=== PATIENT | male | born 1965 | race Caucasian/White ===

== ENCOUNTER → 2021-12-30 | Outpatient (CLI) | payer BC | END | disposition home or self-care (01) | LOC: LAB 08:49 → LAB SHORT 08:49 | DX: L08.9 Local infection of the skin and subcutaneous tissue, unspecified (principal) | CPT/HCPCS: 87070; 87075; 87077; 87147; 87186; 87205 ==

== ENCOUNTER 2023-09-19 01:56 | Day surgery (SDC) | payer BC ==
[~2023-09-19 01:56] MED LIST: Acetaminophen650 M1 PO; CUBICIN RF500 M1 IV; HIGH POTENCY P1 EAC2 PO; VANCOMYCIN IV
[2023-09-19] MEDS ORDERED: DAPTOMYCIN IV SCH (07:15)
[2023-09-19] MEDS ORDERED: NS IV SCH (07:15)
[2023-09-19 07:39] VITALS: BP 147/99
== END 2023-09-19 08:44 | disposition home or self-care (01) ==
LOC: ATC 01:56
DX: M70.41 Prepatellar bursitis, right knee (principal)
CPT/HCPCS: 96365; J0878

== ENCOUNTER 2023-09-20 00:01 | Day surgery (SDC) | payer BC ==
[2023-09-20] MEDS ORDERED: NS IV SCH (06:00)
[2023-09-20] MEDS ORDERED: DAPTOMYCIN IV SCH (06:00)
[2023-09-20 08:40] VITALS: BP 148/104
== END 2023-09-20 09:07 | disposition home or self-care (01) ==
LOC: ATC 00:01
DX: M70.41 Prepatellar bursitis, right knee (principal)
CPT/HCPCS: 96365; J0878

== ENCOUNTER 2023-09-21 00:51 | Day surgery (SDC) | payer BC ==
[2023-09-21] MEDS ORDERED: NS IV SCH (06:00)
[2023-09-21] MEDS ORDERED: DAPTOMYCIN IV SCH (06:00)
[2023-09-21 08:45] VITALS: BP 149/93
[2023-09-21 08:51] LABS: BASOPHILS ABSOLUTE AUTO 0.03 K/mm3 (0.00-0.23); BASOPHILS PERCENT AUTO 0 % (0-2); EOSINOPHILS ABSOLUTE AUTO 0.08 K/mm3 (0.00-0.68); EOSINOPHILS PERCENT AUTO 1 % (0-6); Hematocrit 42.6 % (37.0-53.0); Hemoglobin 14.5 g/dL (13.5-17.5); IMMATURE GRAN ABSOLUTE AUTO 0.07 K/mm3 (0.00-0.10); IMMATURE GRAN PERCENT AUTO 1 % (0-1); LYMPHOCYTES ABSOLUTE AUTO 1.59 K/mm3 (0.84-5.20); LYMPHOCYTES PERCENT AUTO 17 % (21-46); MONOCYTES ABSOLUTE AUTO 0.65 K/mm3 (0.16-1.47); MONOCYTES PERCENT AUTO 7 % (4-13); Mean Corpuscular HGB 28.8 pg (26.0-34.0); Mean Corpuscular Volume 85 fL (80-100); Mean Platelet Volume 9.1 fL (9.1-12.4); NEUTROPHILS ABSOLUTE AUTO 6.71 K/mm3 (1.96-9.15); NEUTROPHILS PERCENT AUTO 74 % (41-73); Platelet Count 399 K/mm3 (150-400); RDW Coefficient Variation 11.9 % (11.7-14.2); RDW Standard Deviation 36.3 fL (35.1-46.3); Red Blood Cell Count 5.04 M/mm3 (4.30-5.90); White Blood Cell Count 9.13 K/mm3 (4.00-11.30)
[2023-09-21 09:10] LABS: Albumin, Blood 3.5 g/dL (3.4-5.0); Albumin/Globulin Ratio 0.8 (0.8-1.8); Bilirubin, Total 0.4 mg/dL (0.1-1.0); Bun/Creatinine Ratio 17.3 (12.0-20.0); Calcium, Blood 9.3 mg/dL (8.5-10.1); Creatinine, Blood 0.92 mg/dL (0.60-1.20); Globulin, Blood 4.3 g/dL (2.2-4.0); Potassium, Blood 3.9 mmol/L (3.5-5.5); Total Protein, Blood 7.8 g/dL (6.4-8.2)
== END 2023-09-21 09:06 | disposition home or self-care (01) ==
LOC: ATC 00:51
PROVIDERS: Physician Assistant
DX: M70.51 Other bursitis of knee, right knee (principal)
CPT/HCPCS: 80053; 82550; 85025; 96365; J0878

== ENCOUNTER 2023-09-22 01:16 | Day surgery (SDC) | payer BC ==
[2023-09-22] MEDS ORDERED: NS IV SCH (06:00)
[2023-09-22] MEDS ORDERED: DAPTOMYCIN IV SCH (06:00)
[2023-09-22 08:30] VITALS: BP 150/97
== END 2023-09-22 08:53 | disposition home or self-care (01) ==
LOC: ATC 01:16
DX: M70.41 Prepatellar bursitis, right knee (principal)
CPT/HCPCS: 96365; J0878

== ENCOUNTER 2023-09-23 08:24 | Day surgery (SDC) | payer BC ==
[~2023-09-23 08:24] MED LIST changes: +DAPTOMYCIN IV SCH; +NS IV SCH
[2023-09-23 08:28] VITALS: BP 144/90
== END 2023-09-23 08:52 | disposition home or self-care (01) ==
LOC: ATC 08:24
DX: M70.41 Prepatellar bursitis, right knee (principal)
CPT/HCPCS: 96365; J0878

== ENCOUNTER 2023-09-24 08:23 | Day surgery (SDC) | payer BC ==
[2023-09-24 08:32] VITALS: BP 139/89
== END 2023-09-24 08:53 | disposition home or self-care (01) ==
LOC: ATC 08:23
DX: M70.51 Other bursitis of knee, right knee (principal)
CPT/HCPCS: 96365; J0878

== ENCOUNTER 2023-09-25 07:13 | Day surgery (SDC) | payer BC ==
[2023-09-25 08:32] VITALS: BP 137/93
[2023-09-25 08:48] LABS: BASOPHILS ABSOLUTE AUTO 0.04 K/mm3 (0.00-0.23); BASOPHILS PERCENT AUTO 1 % (0-2); EOSINOPHILS ABSOLUTE AUTO 0.09 K/mm3 (0.00-0.68); EOSINOPHILS PERCENT AUTO 1 % (0-6); Hematocrit 43.4 % (37.0-53.0); Hemoglobin 14.6 g/dL (13.5-17.5); IMMATURE GRAN ABSOLUTE AUTO 0.05 K/mm3 (0.00-0.10); IMMATURE GRAN PERCENT AUTO 1 % (0-1); LYMPHOCYTES ABSOLUTE AUTO 1.66 K/mm3 (0.84-5.20); LYMPHOCYTES PERCENT AUTO 19 % (21-46); MONOCYTES ABSOLUTE AUTO 0.64 K/mm3 (0.16-1.47); MONOCYTES PERCENT AUTO 8 % (4-13); Mean Corpuscular HGB 28.6 pg (26.0-34.0); Mean Corpuscular HGB Conc 33.6 g/dL (31.5-36.5); Mean Corpuscular Volume 85 fL (80-100); Mean Platelet Volume 9.6 fL (9.1-12.4); NEUTROPHILS ABSOLUTE AUTO 6.08 K/mm3 (1.96-9.15); NEUTROPHILS PERCENT AUTO 71 % (41-73); Platelet Count 353 K/mm3 (150-400); White Blood Cell Count 8.56 K/mm3 (4.00-11.30)
[2023-09-25 09:16] LABS: Albumin, Blood 3.5 g/dL (3.4-5.0); Albumin/Globulin Ratio 0.9 (0.8-1.8); Bilirubin, Total 0.4 mg/dL (0.1-1.0); Bun/Creatinine Ratio 20.4 (12.0-20.0); Calcium, Blood 9.3 mg/dL (8.5-10.1); Creatinine, Blood 0.88 mg/dL (0.60-1.20); Globulin, Blood 4.1 g/dL (2.2-4.0); Potassium, Blood 3.7 mmol/L (3.5-5.5); Total Protein, Blood 7.6 g/dL (6.4-8.2)
== END 2023-09-25 08:55 | disposition home or self-care (01) ==
LOC: ATC 07:13
PROVIDERS: Internal Medicine
DX: M70.51 Other bursitis of knee, right knee (principal)
CPT/HCPCS: 80053; 82550; 85025; 96365; J0878

== ENCOUNTER 2023-09-26 03:38 | Day surgery (SDC) | payer BC ==
[~2023-09-26 03:38] MED LIST changes: -DAPTOMYCIN IV SCH; -NS IV SCH
[2023-09-26] MEDS ORDERED: DAPTOMYCIN IV SCH (06:00)
[2023-09-26] MEDS ORDERED: NS IV SCH (06:00)
[2023-09-26 08:51] VITALS: BP 125/86
== END 2023-09-26 09:10 | disposition home or self-care (01) ==
LOC: ATC 03:38
DX: M70.41 Prepatellar bursitis, right knee (principal)
CPT/HCPCS: 96365; J0878

== ENCOUNTER 2023-09-27 05:20 | Day surgery (SDC) | payer BC ==
[2023-09-27] MEDS ORDERED: NS IV SCH (06:00)
[2023-09-27] MEDS ORDERED: DAPTOMYCIN IV SCH (06:00)
[2023-09-27 08:45] VITALS: BP 125/94
== END 2023-09-27 09:15 | disposition home or self-care (01) ==
LOC: ATC 05:20
DX: M70.41 Prepatellar bursitis, right knee (principal)
CPT/HCPCS: 96365; J0878

== ENCOUNTER 2023-09-28 02:58 | Day surgery (SDC) | payer BC ==
[2023-09-28] MEDS ORDERED: DAPTOMYCIN IV SCH (06:00)
[2023-09-28] MEDS ORDERED: NS IV SCH (06:00)
[2023-09-28 08:35] VITALS: BP 136/98
[2023-09-28 09:51] LABS: BASOPHILS ABSOLUTE AUTO 0.04 K/mm3 (0.00-0.23); BASOPHILS PERCENT AUTO 0 % (0-2); EOSINOPHILS ABSOLUTE AUTO 0.07 K/mm3 (0.00-0.68); EOSINOPHILS PERCENT AUTO 1 % (0-6); Hematocrit 45.6 % (37.0-53.0); Hemoglobin 15.1 g/dL (13.5-17.5); IMMATURE GRAN ABSOLUTE AUTO 0.04 K/mm3 (0.00-0.10); IMMATURE GRAN PERCENT AUTO 0 % (0-1); LYMPHOCYTES ABSOLUTE AUTO 1.62 K/mm3 (0.84-5.20); LYMPHOCYTES PERCENT AUTO 18 % (21-46); MONOCYTES ABSOLUTE AUTO 0.64 K/mm3 (0.16-1.47); MONOCYTES PERCENT AUTO 7 % (4-13); Mean Corpuscular HGB 28.3 pg (26.0-34.0); Mean Corpuscular HGB Conc 33.1 g/dL (31.5-36.5); Mean Corpuscular Volume 86 fL (80-100); NEUTROPHILS ABSOLUTE AUTO 6.61 K/mm3 (1.96-9.15); NEUTROPHILS PERCENT AUTO 73 % (41-73); Platelet Count 303 K/mm3 (150-400); RDW Coefficient Variation 12.3 % (11.7-14.2); RDW Standard Deviation 38.4 fL (35.1-46.3); Red Blood Cell Count 5.33 M/mm3 (4.30-5.90); White Blood Cell Count 9.02 K/mm3 (4.00-11.30)
[2023-09-28 10:23] LABS: Albumin, Blood 3.7 g/dL (3.4-5.0); Albumin/Globulin Ratio 0.9 (0.8-1.8); Bilirubin, Total 0.6 mg/dL (0.1-1.0); Calcium, Blood 9.4 mg/dL (8.5-10.1); Creatinine, Blood 0.94 mg/dL (0.60-1.20); Globulin, Blood 4.2 g/dL (2.2-4.0); Total Protein, Blood 7.9 g/dL (6.4-8.2)
== END 2023-09-28 09:01 | disposition home or self-care (01) ==
LOC: ATC 02:58
PROVIDERS: Physician Assistant
DX: M70.51 Other bursitis of knee, right knee (principal)
CPT/HCPCS: 80053; 82550; 85025; 96365; J0878

== ENCOUNTER 2023-09-29 05:08 | Day surgery (SDC) | payer BC ==
[2023-09-29] MEDS ORDERED: NS IV SCH (06:00)
[2023-09-29] MEDS ORDERED: DAPTOMYCIN IV SCH (06:00)
[2023-09-29 08:35] VITALS: BP 139/91
== END 2023-09-29 09:00 | disposition home or self-care (01) ==
LOC: ATC 05:08
DX: M70.41 Prepatellar bursitis, right knee (principal)
CPT/HCPCS: 96365; J0878